=== PATIENT | female | born 1995 | race Hispanic/Latino ===

== ENCOUNTER 2021-01-03 10:05 | Emergency (ER) | payer SELFPAY ==
[~2021-01-03] VITALS: Ht 162.6 cm; Wt 77.1 kg
== END 2021-01-03 11:39 | disposition home or self-care (01) ==
LOC: FSED 10:53
DX: J20.9 Acute bronchitis, unspecified (principal); J02.9 Acute pharyngitis, unspecified; R05 Cough
CPT/HCPCS: 87400; 99282